=== PATIENT | female | born 1950 | race Caucasian/White ===

== ENCOUNTER 2023-07-23 12:45 | Day surgery (SDC) | payer MEDICARE ==
[2023-07-23 13:27] VITALS: TEMP 98
[2023-07-23 15:01] VITALS: BP 141/80; PULSE 94; RESP 16
--- NOTE | 2023-07-23 16:49 | US ---
EXAM: US biopsy lymph node DATE OF EXAM: 07/23/2023 COMPARISON: None available History: 73-year-old female R5 9.0, right-sided neck mass, enlarged lymph node. TECHNIQUE: The procedure of ultrasound guided core biopsy was explained to the patient. Benefits, alternatives, and risks were discussed. An informed consent was then obtained. The patient was placed in a semireclined position for imaging and for the procedure. Initial scanning shows extensive adenopathy along the right side of the neck. The overlying skin was prepped and draped in usual sterile fashion. Lidocaine was used as anesthetic into the skin and subcutaneous tissue at the right neck. A tiny tayla was made with surgical scalpel. Under ultrasound guidance, an 18-gauge biopsy needle was used to obtain 3 core samples. 2 specimens were placed in formalin and one specimen on a Telfa pad. The needle was removed, hemostasis obtained, and a bandage placed. The patient tolerated the procedure well without any immediate complication. The patient was kept in the radiology department for short stay after the procedure and then discharged home in stable condi tion. IMPRESSION: Successful, uncomplicated ultrasound guided core biopsy of area of right-sided neck adeno thanh. Pathology pending.
== END 2023-07-23 14:40 | disposition home or self-care (01) ==
LOC: RADPROMAIN 12:45
PROVIDERS: ATTEND Otolaryngology
DX: R22.1 Localized swelling, mass and lump, neck (principal)
CPT/HCPCS: 38505; 76942; 88305; 88341; 88342

== ENCOUNTER 2023-09-12 14:26 | Inpatient (IN) | payer MEDICARE ==
[2023-09-12] MEDS ORDERED: HEPARIN SODIUM 1,000 UN/ML (10ML VL) IV PRN (15:19)
[2023-09-12 15:52] LABS: HCT 37.7 % (34.0-46.0); HGB 13.3 gm/dL (11.4-16.0); MCH 31.8 pg (25.0-35.0); MCHC 35.3 g/dL (31.0-37.0); Mean Platelet Volume 8.3; Platelet Count 253 k/uL (150-450); RBC 4.19 m/uL (3.80-5.40); RDW 13.3 % (11.5-15.5); WBC 14.6 k/uL (3.8-10.6)
[2023-09-12] MEDS: IPRATROPIUM-ALBUTEROL 3 ML NEB INHALATION STA (15:58)
[2023-09-12] MEDS: HEPARIN SODIUM 1,000 UN/ML (10ML VL) IV ONE (16:04)
[2023-09-12 16:05] LABS: ALT 18 U/L (4-34); AST 26 U/L (14-36); African American GFR (CKD) >90 (>60 ml/min/1.73 sqM); Albumin 3.8 g/dL (3.5-5.0); Alkaline Phosphatase 153 U/L (38-126); Anion Gap 10 mmol/L; Blood Urea Nitrogen 9 mg/dL (7-17); Calcium 9.2 mg/dL (8.4-10.2); Carbon Dioxide 20 mmol/L (22-30); Chloride 101 mmol/L (98-107); Glucose 122 mg/dL (74-99); Non-African American GFR(CKD) >90 (>60 ml/min/1.73 sqM); Potassium 4.2 mmol/L (3.5-5.1); Sodium 131 mmol/L (137-145); Total Bilirubin 0.7 mg/dL (0.2-1.3); Total Protein 7.1 g/dL (6.3-8.2)
[2023-09-12] MEDS: HEPARIN SOD,PORK IN 0.45% NACL 25,000 UNIT in 0.45% NACL 1 250ML.BAG IV SCH (16:05)
[2023-09-12] MEDS: SODIUM CHLORIDE 0.9% 1,000 ML IV STA (16:06)
[2023-09-12 16:09] LABS: INR 0.8 (<1.2); Partial Thromboplastin Time 22.9 sec (22.0-30.0); Prothrombin Time 9.6 sec (10.0-12.5)
--- NOTE | 2023-09-12 16:10 | ED ---
General Adult HPI - General Chief complaint: Recheck/Abnormal Lab/Rx Stated complaint: abnormal ct results Source: patient Mode of arrival: ambulatory Limitations: no limitations - History of Present Illness Initial comments: This 73-year-old female presents with complaint of some shortness breath and cough. She has had occasional slight whitish production. The cough has been present for quite some time but symptoms seem much worse just since yesterday. She has had occasional midsternal chest tightness as well. She denies any pleuritic chest pain. She denies any fevers or chills. She states that she was just recently diagnosed with non-Hodgkin's lymphoma about a month and half ago. She's been undergoing chemotherapy for the last 2 weeks and follows up with Dr. Tyler from oncology. He ordered a computed tomography scan outpatient for her today. They noted that she has right-sided pulmonary emboli. They sent her to the emergency department for further evaluation and treatment. Patient denies any leg pain or swelling. She denies any known history of DVT or PE. No other complaints or modifying factors. - Related Data Home Medications Medication Instructions Recorded Confirmed Aprepitant [Emend] 80 mg PO DIRECTED 08/29/23 09/12/23 Ondansetron [Zofran] 4 - 8 mg PO Q6H PRN 08/29/23 09/12/23 predniSONE 100 mg PO DIRECTED 08/29/23 09/12/23 ALPRAZolam [Xanax] 0.25 mg PO DAILY PRN 09/12/23 09/12/23 Famotidine 40 mg PO DAILY PRN 09/12/23 09/12/23 Lidocaine-Prilocaine Cream [Emla 1 applic TOPICAL DIRECTED PRN 09/12/23 09/12/23 Cream 2.5%/2.5%] Omeprazole 40 mg PO DAILY 09/12/23 09/12/23 Allergies Allergy/AdvReac Type Severity Reaction Status Date / Time Penicillins Allergy Rash/Hives Verified 09/12/23 14:53 Sulfa (Sulfonamide Allergy Rash/Hives Verified 09/12/23 14:53 Antibiotics) Review of Systems ROS Statement: Those systems with pertinent positive or pertinent negative responses have been documented in the HPI. ROS Other: All systems not noted in ROS Statement are negative. Past Medical History Past Medical History: Pneumonia Additional Past Medical History / Comment(s): LARGE B CELL LYMPHOMA -R-CHOP 09/21 History of Any Multi-Drug Resistant Organisms: None Reported Past Surgical History: Orthopedic Surgery Past Anesthesia/Blood Transfusion Reactions: No Reported Reaction Past Psychological History: No Psychological Hx Reported Smoking Status: Second hand smoke exposure Past Alcohol Use History: Occasional Past Drug Use History: None Reported - Past Family History Mother Family Medical History: Congestive Heart Failure (CHF), Diabetes Mellitus General Exam - General Exam Comments Initial Comments: GENERAL: The patient is well nourished and well hydrated. VITAL SIGNS: Heart rate, blood pressure, respiratory rate reviewed as recorded in nurse's notes. EYES: Pupils are round and reactive. Extraocular movements are intact. No conjunctival / lid redness or swelling. ENT: No external evidence of injury, swelling, or ecchymosis. Airway is patent. Throat is clear. NECK: Nontender. No swelling or evidence of injury. No subcutaneous emphysema. Trachea is midline. No thyroid mass. HEART: Tachycardic rate and rhythm. Good peripheral pulses. LUNGS/CHEST: Breath sounds clear and equal bilaterally. No rales, rhonchi, or wheezes. No ecchymosis, subcutaneous emphysema, or tenderness. ABDOMEN: Abdomen soft without tenderness. No palpable masses or organomegaly. No peritoneal signs. No abdominal wall swelling or ecchymosis. EXTREMITIES: No extremity tenderness or swelling. Normal muscle tone and function. No thoracolumbar tenderness. NEUROLOGIC: Sensation is grossly intact. Cranial nerve exam reveals face is symmetrical, tongue is midline, speech is clear. SKIN: No abrasions or ecchymosis is noted. No induration or masses noted. PSYCHIATRIC: Alert and oriented. Appropriate behavior and judgment. Limitations: no limitations Course Vital Signs 09/12/23 09/12/23 09/12/23 14:50 16:02 16:07 Temperature 98 F Pulse Rate 113 H 110 H 115 H Respiratory 18 16 Rate Blood Pressure 140/80 127/77 O2 Sat by Pulse 92 L 99 Oximetry Medical Decision Making - Medical Decision Making The patient was seen and examined. All diagnostics were reviewed. EKG is completed and this does show sinus tachycardia at a rate of 111. There is no a cute ST elevation noted per my interpretation. Occasional PVC noted. No acute ST or T-wave changes otherwise noted per my interpretation. The intervals are normal. The laboratory does show some mild leukocytosis and slight decrease of CO2. IV is started patient is slightly dehydrated. She also receives heparin intravenously as her CT was reviewed and does show evidence of pulmonary embolism with likely right heart strain per my interpretation and radiologist interpretation. There are also some potential inflammatory changes in her lungs. Please see report for details. She also receives a DuoNeb breathing treatment for her coughing. It is felt as though she benefit from admission to the hospital and further workup. Lower extremity venous Dopplers are ordered and are pending. Case will be discussed with vascular surgery in the near future. Case also will be discussed with internal medicine. Was pt. sent in by a medical professional or institution (, ALICE, DESK DIRECTOR, urgent care, hospital, or [place] [facility] facility...) When possible be specific @ -No Did you speak to anyone other than the patient for history (EMS, parent, family, police, friend...)? What history was obtained from this source @ -No Did you review nursing and triage notes (agree or disagree)? Why? @ -I reviewed and agree with nursing and triage notes Were old charts reviewed (outside hosp., previous admission, EMS record, old EKG, old radiological studies, urgent care reports/EKG's, [place] [facility] care facility records)? Report findings @ -Old records were reviewed which does include CT angiogram of the chest which shows no pulmonary embolism and was done earlier today. Differential Diagnosis (chest pain, altered mental status, abdominal pain women, abdominal pain men, vaginal bleeding, weakness, fever, dyspnea, syncope, headache, dizziness, GI bleed, back pain, seizure, CVA, palpatations, mental health, musculoskeletal)? @ -Pulmonary embolism, COPD, cough, DVT, lymphoma, dyspnea, chest pain. EKG interpreted by me (3pts min.). @ -As above X-rays interpreted by me (1pt min.). @ -None done CT interpreted by me (1pt min.). @ -As above U/S interpreted by me (1pt. min.). @ -Ultrasound is currently pending. What testing was considered but not performed or refused? (CT, X-rays, U/S, labs)? Why? @ -None What meds were considered but not given or refused? Why? @ -None Did you discuss the management of the patient with other professionals (professionals i.e. , PA, DESK DIRECTOR, lab, RT, psych nurse, 7th grade social studies teacher, supervisor shellfish farming, teacher, appeals officer, community case manager)? Give summary @ -Case will be discussed with internal medicine as well as the vascular surgeon who is on for EKOS throat. Was smoking cessation discussed for >3mins.? @ -No Was critical care preformed (if so, how long)? @ -No Were there social determinants of health that impacted care today? How? (Homelessness, low income, unemployed, alcoholism, drug addiction, transportation, low edu. Level, literacy, decrease access to med. care, shelter, rehab)? @ -No Was there de-escalation of care discussed even if they declined (Discuss DNR or withdrawal of care, Hospice)? DNR status @ -No What co-morbidities impacted this encounter? (DM, HTN, Smoking, COPD, CAD, Cancer, CVA, ARF, Chemo, Hep., AIDS, mental health diagnosis, sleep apnea, mo rbid obesity)? @ -Non-Hodgkin's lymphoma Was patient admitted / discharged? Hospital course, mention meds given and route, prescriptions, significant lab abnormalities, going to OR and other pertinent info. @ -Patient was admitted to the hospital, please see above. Undiagnosed new problem with uncertain prognosis? @ -No Drug Therapy requiring intensive monitoring for toxicity (Heparin, Nitro, Insulin, Cardizem)? @ -No Were any procedures done? @ -No Diagnosis/symptom? @ -Pulmonary embolism, right heart strain, cough, chest pain, dyspnea Acute, or Chronic, or Acute on Chronic? @ -Acute Uncomplicated (without systemic symptoms) or Complicated (systemic symptoms)? @ -Uncomplicated Side effects of treatment? @ -No Exacerbation, Progression, or Severe Exacerbation? @ -No Poses a threat to life or bodily function? How? (Chest pain, [place], [place], pneumonia, PE, COPD, DKA, ARF, appy, cholecystitis, CVA, Diverticulitis, Homicidal, Suicidal, threat to staff... and all critical care pts) @ -Yes, pulmonary embolism is potentially life threatening. - Lab Data Result diagrams: 09/12/23 15:32 09/12/23 15:32 Lab Results 09/12/23 09/12/23 Range/Units 15:32 15:32 WBC 14.6 H (3.8-10.6) k/uL RBC 4.19 (3.80-5.40) m/uL Hgb 13.3 (11.4-16.0) gm/dL Hct 37.7 (34.0-46.0) % MCV 90.0 (80.0-100.0) fL MCH 31.8 (25.0-35.0) pg MCHC 35.3 (31.0-37.0) g/dL RDW 13.3 (11.5-15.5) % Plt Count 253 (150-450) k/uL MPV 8.3 Sodium 131 L (137-145) mmol/L Potassium 4.2 (3.5-5.1) mmol/L Chloride 101 (98-107) mmol/L Carbon Dioxide 20 L (22-30) mmol/L Anion Gap 10 mmol/L BUN 9 (7-17) mg/dL Creatinine 0.43 L (0.52-1.04) mg/dL Est GFR (CKD-EPI)AfAm >90 (>60 ml/min/1.73 sqM) Est GFR (CKD-EPI)NonAf >90 (>60 ml/min/1.73 sqM) Glucose 122 H (74-99) mg/dL Calcium 9.2 (8.4-10.2) mg/dL Total Bilirubin 0.7 (0.2-1.3) mg/dL AST 26 (14-36) U/L ALT 18 (4-34) U/L Alkaline Phosphatase 153 H (38-126) U/L Total Protein 7.1 (6.3-8.2) g/dL Albumin 3.8 (3.5-5.0) g/dL Disposition Clinical Impression: Pulmonary embolism, Sinus tachycardia, Dyspnea, Chest pain, Non-Hodgkin lymphoma, Cough, Leukocytosis, Hyponatremia Disposition: ADMITTED IP TO THIS [facility] Condition: Fair Referrals: Bisi Calle FNPBC [Primary Care Provider] - 1-2 days Time of Disposition: 16:16 Decision Date: 09/12/23 Decision Time: 16:16
[2023-09-12 16:14] LABS: NT-Pro-B-Type Natriuretic Pept 154 pg/mL
[2023-09-12 16:18] LABS: Band Neutrophils % 2 %; Lymphocytes # (M) 0.29 k/uL (1.0-4.8); Metamyelocytes # (M) 0.29 k/uL (0); Metamyelocytes % 2 %; Monocytes # (M) 1.46 k/uL (0-1.0); Myelocytes # (M) 0.44 k/uL (0); Myelocytes % 3 %; Neutrophils % (M) 82 %; Nucleated Red Blood Cells 0 /100 WBC (0-0); Total Cells Counted 200
[2023-09-12] MEDS ORDERED: ONDANSETRON 4 MG/2 ML VIAL IVP PRN (16:18)
[2023-09-12] MEDS ORDERED: FAMOTIDINE 20 MG TAB PO PRN (16:22)
[2023-09-12] MEDS ORDERED: ALPRAZolam 0.25 MG TAB PO PRN (16:22)
[2023-09-12] MEDS ORDERED: APREPITANT 80 MG PO SCH (16:30)
--- NOTE | 2023-09-12 18:19 | US ---
EXAMINATION TYPE: US venous doppler duplex LE BI DATE OF EXAM: 09/12/2023 3:26 PM COMPARISON: NONE CLINICAL INDICATION: Female, 73 years old with history of chest pain and sob; PE, SOB SIDE PERFORMED: bilateral TECHNIQUE: The lower extremity deep venous system is examined utilizing real time linear array sonog tunde with graded compression, doppler sonography and color-flow sonography. VESSELS IMAGED: Common Femoral Vein Deep Femoral Vein Greater Saphenous Vein * Femoral Vein Popliteal Vein Small Saphenous Vein * Proximal Calf Veins (* superficial vessels) Right Leg: No evidence of DVT as visualized Left Leg: No evidence of DVT as visualized IMPRESSION: No evidence for DVT within the bilateral lower extremities imaged from the groin to the upper calves.
[2023-09-13] MEDS: MELATONIN 3 MG TABLET PO SCH (00:25)
[2023-09-13] MEDS: HYDROcodone/APAP 5-325MG 1 EACH TAB PO PRN (00:55)
[2023-09-13] MEDS: PANTOPRAZOLE 40 MG/10 ML VIAL IV SCH (09:24)
[2023-09-13 09:32] LABS: Basophils # (A) 0.1 k/uL (0-0.2); Basophils % (A) 0 %; Eosinophils % (A) 0 %; HCT 36.9 % (34.0-46.0); HGB 12.4 gm/dL (11.4-16.0); Lymphocytes # (A) 0.7 k/uL (1.0-4.8); Lymphocytes % (A) 3 %; MCH 30.3 pg (25.0-35.0); MCHC 33.6 g/dL (31.0-37.0); MCV 90.3 fL (80.0-100.0); Mean Platelet Volume 7.8; Monocytes # (A) 1.4 k/uL (0-1.0); Monocytes % (A) 7 %; Neutrophils # (A) 18.7 k/uL (1.3-7.7); Neutrophils % (A) 88 %; Platelet Count 277 k/uL (150-450); RBC 4.09 m/uL (3.80-5.40); RDW 13.7 % (11.5-15.5); WBC 21.4 k/uL (3.8-10.6)
--- NOTE | 2023-09-13 09:58 | P.GSCN ---
History of Present Illness Consult date: 09/13/23 Reason for Consult: Pulmonary embolism Requesting physician: Bc Ly History of present illness: This is a pleasant 73-year-old female recently diagnosed with non-Hodgkin's lymphoma about a month and a half ago who presented to the emergency department with shortness of breath and positive CT angiogram for right pulmonary embolism. Patient had been having increased shortness of breath and had seen Dr. Gupta. She started chemotherapy about 2 weeks ago and got 1 treatment. She is due to get's upcoming treatment. She states that she was starting to have shortness of breath and had seen Dr. Gupta he ordered a CT angiogram the chest that reported right-sided pulmonary emboli with suspicion of some mild right heart strain. Inflammatory or airway changes and/or chronic changes in the lung bases bilatera lly. No evidence of thoracic aortic aneurysm or dissection. Vascular surgery was consulted for pulmonary embolism. She is currently on 2 L nasal cannula saturation 92 to 98%. She is also on IV heparin drip. Awaiting echocardiogram results. Venous duplex of bilateral lower extremities was ordered, negative bilaterally. Patient states she also has a cough especially with a deep breath. She has been afebrile. She currently has some shortness of breath, she does have a cough when she takes a deep breath. No chest pain, abdominal pain, nausea or vomiting. No lower extremity swelling. Troponins are negative x 3 Review of Systems A 14 point review systems was completed all pertinent positives and negatives as stated in the HPI. Past Medical History Past Medical History: Pneumonia Additional Past Medical History / Comment(s): LARGE B CELL LYMPHOMA -R-CHOP 09/21 History of Any Multi-Drug Resistant Organisms: None Reported Past Surgical History: Orthopedic Surgery Past Anesthesia/Blood Transfusion Reactions: No Reported Reaction Past Psychological History: No Psychological Hx Reported Smoking Status: Second hand smoke exposure Past Alcohol Use History: Occasional Past Drug Use History: None Reported - Past Family History Mother Family Medical History: Congestive Heart Failure (CHF), Diabetes Mellitus Medications and Allergies Home Medications Medication Instructions Recorded Confirmed Type Aprepitant [Emend] 80 mg PO DIRECTED 08/29/23 09/12/23 History Ondansetron [Zofran] 4 - 8 mg PO Q6H PRN 08/29/23 09/12/23 History predniSONE 100 mg PO DIRECTED 08/29/23 09/12/23 History ALPRAZolam [Xanax] 0.25 mg PO DAILY PRN 09/12/23 09/12/23 History Famotidine 40 mg PO DAILY PRN 09/12/23 09/12/23 History Lidocaine-Prilocaine Cream [Emla 1 applic TOPICAL DIRECTED PRN 09/12/23 09/12/23 History Cream 2.5%/2.5%] Omeprazole 40 mg PO DAILY 09/12/23 09/12/23 History Allergies Allergy/AdvReac Type Severity Reaction Status Date / Time Penicillins Allergy Rash/Hives Verified 09/12/23 14:53 Sulfa (Sulfonamide Allergy Rash/Hives Verified 09/12/23 14:53 Antibiotics) Surgical - Exam Vital Signs Temp Pulse Resp BP Pulse Ox 98 F 113 H 18 140/80 92 L 09/12/23 14:50 09/12/23 14:50 09/12/23 14:50 09/12/23 14:50 09/12/23 14:50 General appearance: The patient is alert, oriented, appears in no acute distress. HET: Head is normocephalic and atraumatic. Pupils are equal and reactive. Neck: Supple. Heart: Regular. Lungs: Equal expansion, normal respiratory effort. Diminished bases. Abdomen: Soft, nontender, nondistended. Extremities: Normal skin color and turgor. Neurological: No focal deficits. Strength and sensation are grossly intact. Results - Labs 09/13/23 09:23 09/12/23 15:32 Abnormal Lab Results - Last 24 Hours (Table) 09/12/23 09/12/23 09/12/23 Range/Units 15:32 15:32 15:32 WBC 14.6 H (3.8-10.6) k/uL Neutrophils # (Manual) 12.20 H (1.3-7.7) k/uL Lymphocytes # (Manual) 0.29 L (1.0-4.8) k/uL Monocytes # (Manual) 1.46 H (0-1.0) k/uL Metamyelocytes # (Man) 0.29 H (0) k/uL Myelocytes # (Manual) 0.44 H (0) k/uL PT 9.6 L (10.0-12.5) sec APTT (22.0-30.0) sec D-Dimer 4.71 H (<0.60) mg/L FEU Sodium 131 L (137-145) mmol/L Carbon Dioxide 20 L (22-30) mmol/L Creatinine 0.43 L (0.52-1.04) mg/dL Glucose 122 H (74-99) mg/dL Alkaline Phosphatase 153 H (38-126) U/L 09/12/23 Range/Units 21:23 WBC (3.8-10.6) k/uL Neutrophils # (Manual) (1.3-7.7) k/uL Lymphocytes # (Manual) (1.0-4.8) k/uL Monocytes # (Manual) (0-1.0) k/uL Metamyelocytes # (Man) (0) k/uL Myelocytes # (Manual) (0) k/uL PT (10.0-12.5) sec APTT 78.6 H (22.0-30.0) sec D-Dimer (<0.60) mg/L FEU Sodium (137-145) mmol/L Carbon Dioxide (22-30) mmol/L Creatinine (0.52-1.04) mg/dL Glucose (74-99) mg/dL Alkaline Phosphatase (38-126) U/L Diabetes panel 09/12/23 Range/Units 15:32 Sodium 131 L (137-145) mmol/L Potassium 4.2 (3.5-5.1) mmol/L Chloride 101 (98-107) mmol/L Carbon Dioxide 20 L (22-30) mmol/L BUN 9 (7-17) mg/dL Creatinine 0.43 L (0.52-1.04) mg/dL Glucose 122 H (74-99) mg/dL Calcium 9.2 (8.4-10.2) mg/dL AST 26 (14-36) U/L ALT 18 (4-34) U/L Alkaline Phosphatase 153 H (38-126) U/L Total Protein 7.1 (6.3-8.2) g/dL Albumin 3.8 (3.5-5.0) g/dL Calcium panel 09/12/23 Range/Units 15:32 Calcium 9.2 (8.4-10.2) mg/dL Albumin 3.8 (3.5-5.0) g/dL Pituitary panel 09/12/23 Range/Units 15:32 Sodium 131 L (137-145) mmol/L Potassium 4.2 (3.5-5.1) mmol/L Chloride 101 (98-107) mmol/L Carbon Dioxide 20 L (22-30) mmol/L BUN 9 (7-17) mg/dL Creatinine 0.43 L (0.52-1.04) mg/dL Glucose 122 H (74-99) mg/dL Calcium 9.2 (8.4-10.2) mg/dL Adrenal panel 09/12/23 Range/Units 15:32 Sodium 131 L (137-145) mmol/L Potassium 4.2 (3.5-5.1) mmol/L Chloride 101 (98-107) mmol/L Carbon Dioxide 20 L (22-30) mmol/L BUN 9 (7-17) mg/dL Creatinine 0.43 L (0.52-1.04) mg/dL Glucose 122 H (74-99) mg/dL Calcium 9.2 (8.4-10.2) mg/dL Total Bilirubin 0.7 (0.2-1.3) mg/dL AST 26 (14-36) U/L ALT 18 (4-34) U/L Alkaline Phosphatase 153 H (38-126) U/L Total Protein 7.1 (6.3-8.2) g/dL Albumin 3.8 (3.5-5.0) g/dL - Imaging Comments: CT angiogram chest: Filling defects within the segmental and subsegmental branches of the right middle and right lower lobe pulmonary arteries. Some prominence of right heart which is suggestive of some right heart strain however also some mild global cardiomegaly as well. Inflammatory airway changes and or chronic c changes in the lung bases bilaterally. No evidence of thoracic aortic aneurysm or dissection Venous duplex lower extremities. Bilateral lower extremities negative for deep vein thrombosis CT scan - chest: report reviewed Assessment and Plan Assessment: 1. Right-sided pulmonary embolism 2. Shortness of breath 3. Recent diagnosis of non-Hodgkin's lymphoma on chemotherapy Plan: 1. Continue IV heparin 2. Await echocardiogram results 3. Further recommendations forthcoming based on echocardiogram results however troponins are negative x 3 and this is a subsegmental/segmental right pulmonary emboli likely no intervention will be required 4. Will defer anticoagulation recommendations to oncology who is following for non-Hodgkin's lymphoma currently on chemotherapy Thank you for this consultation, we will continue to follow. The impression and plan of care has been dictated as directed. I performed a history and examination of this patient, discussed the same with the dictator. I agree with the dictator's note ,documented as a scribe. Any additional findings or plans will be noted.
--- NOTE | 2023-09-13 10:54 | P.HPIM ---
History of Present Illness H&P Date: 09/13/23 History of present illness; patient 73-year-old lady with past medical history significant for non-Hodgkin lymphoma currently on chemotherapy who was sent in after getting outpatient CT chest showing patient to have PE. According the patient patient has been having shortness of breath and cough for the last few days. Patient stated that the cough is productive, phlegm is whitish in color. Patient complains of shortness of breath on exertion. Denies any chest pain. There is no complaint of palpitation. No current lightheadedness or dizziness. Denies any fever or chills at home. Patient normally follows up with Dr. Tyler. Because of worsening shortness of breath they ordered a CT chest PE protocol showed patient to have PE. Patient was referred to The ER Initial lab work done in the ER showed WBC 14.6, hemoglobin 13.3, platelet count 253, sodium 131, D-dimer 4.71, BUN 9, creatinine 0.43, AST 26, ALT 18, troponin 0.012, proBNP 154 Duplex ultrasound of lower extremities shows no DVT EKG done in the ER showed heart rate of111 , no ST segment elevation or depression seen, no T-wave inversions seen. Patient admitted to internal medicine service REVIEW OF SYSTEMS: CONSTITUTIONAL: No fever, no malaise, no fatigue. HEENT: No recent visual problems or hearing problems. Denied any sore throat. CARDIOVASCULAR: As mentioned above PULMONARY: As mentioned above GASTROINTESTINAL: No diarrhea, no nausea, no vomiting, no abdominal pain. NEUROLOGICAL: No headaches, no weakness, no numbness. HEMATOLOGICAL: Denies any bleeding or petechiae. GENITOURINARY: Denies any burning micturition, frequency, or urgency. MUSCULOSKELETAL/RHEUMATOLOGICAL: Denies any joint pain, swelling, or any muscle pain. ENDOCRINE: Denies any polyuria or polydipsia. The rest of the 14-point review of systems is negative. PHYSICAL EXAMINATION: GENERAL: The patient is alert and oriented x3, not in any acute distress. Well developed, well nourished. HEENT: Pupils are round and equally reacting to light. EOMI. No scleral icterus. No conjunctival pallor. Normocephalic, atraumatic. No pharyngeal erythema. No thyromegaly. CARDIOVASCULAR: S1 and S2 present. No murmurs, rubs, or gallops. PULMONARY: Chest is clear to auscultation, no wheezing or crackles. ABDOMEN: Soft, nontender, nondistended, normoactive bowel sounds. No palpable organomegaly. MUSCULOSKELETAL: No joint swelling or deformity. EXTREMITIES: No cyanosis, clubbing, or pedal edema. NEUROLOGICAL: Gross neurological examination did not reveal any focal deficits. SKIN: No rashes. Assessment and plan Acute PE non-Hodgkin's lymphoma Monitor vital signs Monitor CBC Monitor CMP Continue telemetry monitoring Trend troponin Ordered proBNP 2D echo ordered Continue pharmacy to dose heparin Hematology oncology consulted Pulmonology consulted. Vascular surgery consulted Labs and medication were reviewed.. Continue same treatment. Continue with symptomatic treatment. Resume home medication. Monitor labs and vitals. DVT and GI prophylaxis. Further recommendations as per clinical course of the patient Dictation was produced using [employer] dictation software. please excuse any grammatical, word or spelling errors. Past Medical History Past Medical History: Pneumonia Additional Past Medical History / Comment(s): LARGE B CELL LYMPHOMA -R-CHOP 09/21 History of Any Multi-Drug Resistant Organisms: None Reported Past Surgical History: Orthopedic Surgery Past Anesthesia/Blood Transfusion Reactions: No Reported Reaction Past Psychological History: No Psychological Hx Reported Smoking Status: Second hand smoke exposure Past Alcohol Use History: Occasional Past Drug Use History: None Reported - Past Family History Mother Family Medical History: Congestive Heart Failure (CHF), Diabetes Mellitus Medications and Allergies Home Medications Medication Instructions Recorded Confirmed Type Aprepitant [Emend] 80 mg PO DIRECTED 08/29/23 09/12/23 History Ondansetron [Zofran] 4 - 8 mg PO Q6H PRN 08/29/23 09/12/23 History predniSONE 100 mg PO DIRECTED 08/29/23 09/12/23 History ALPRAZolam [Xanax] 0.25 mg PO DAILY PRN 09/12/23 09/12/23 History Famotidine 40 mg PO DAILY PRN 09/12/23 09/12/23 History Lidocaine-Prilocaine Cream [Emla 1 applic TOPICAL DIRECTED PRN 09/12/23 09/12/23 History Cream 2.5%/2.5%] Omeprazole 40 mg PO DAILY 09/12/23 09/12/23 History Allergies Allergy/AdvReac Type Severity Reaction Status Date / Time Penicillins Allergy Rash/Hives Verified 09/12/23 14:53 Sulfa (Sulfonamide Allergy Rash/Hives Verified 09/12/23 14:53 Antibiotics) Physical Exam Vitals: Vital Signs Temp Pulse Resp BP Pulse Ox 09/13/23 09:06 99.8 F H 100 18 126/68 96 09/13/23 02:12 95 16 96/56 92 L 09/12/23 23:00 105 H 16 127/65 94 L 09/12/23 18:15 106 H 18 117/65 94 L 09/12/23 16:07 115 H 16 127/77 99 09/12/23 16:02 110 H 09/12/23 14:50 98 F 113 H 18 140/80 92 L Intake and Output 09/12/23 09/13/23 09/13/23 22:59 06:59 14:59 Intake Total 250 Balance 250 Intake: Intake, IV Titration 250 Amount Heparin Sod,Pork in 0.45% 250 NaCl 25,000 unit In 0.45 % NaCl 1 250ml.bag @ 18 UNITS/KG/HR 15.186 mls/hr IV .[id number] [facility] Rx#: [id number] Results CBC & Chem 7: 09/13/23 09:23 09/12/23 15:32 Labs: Abnormal Lab Results - Last 24 Hours (Table) 09/12/23 09/12/23 09/12/23 Range/Units 15:32 15:32 15:32 WBC 14.6 H (3.8-10.6) k/uL Neutrophils # (Manual) 12.20 H (1.3-7.7) k/uL Lymphocytes # (Manual) 0.29 L (1.0-4.8) k/uL Monocytes # (Manual) 1.46 H (0-1.0) k/uL Metamyelocytes # (Man) 0.29 H (0) k/uL Myelocytes # (Manual) 0.44 H (0) k/uL PT 9.6 L (10.0-12.5) sec APTT (22.0-30.0) sec D-Dimer 4.71 H (<0.60) mg/L FEU Sodium 131 L (137-145) mmol/L Carbon Dioxide 20 L (22-30) mmol/L Creatinine 0.43 L (0.52-1.04) mg/dL Glucose 122 H (74-99) mg/dL Alkaline Phosphatase 153 H (38-126) U/L 09/12/23 Range/Units 21:23 WBC (3.8-10.6) k/uL Neutrophils # (Manual) (1.3-7.7) k/uL Lymphocytes # (Manual) (1.0-4.8) k/uL Monocytes # (Manual) (0-1.0) k/uL Metamyelocytes # (Man) (0) k/uL Myelocytes # (Manual) (0) k/uL PT (10.0-12.5) sec APTT 78.6 H (22.0-30.0) sec D-Dimer (<0.60) mg/L FEU Sodium (137-145) mmol/L Carbon Dioxide (22-30) mmol/L Creatinine (0.52-1.04) mg/dL Glucose (74-99) mg/dL Alkaline Phosphatase (38-126) U/L
--- NOTE | 2023-09-13 13:19 | P.CONS ---
History of Present Illness - Reason for Consult Consult date: 09/13/23 PE, DLBCL on chemo - History of Present Illness The patient is a 73-year-old white female, well known to myself. She has a recent diagnosis of diffuse large B cell lymphoma, diagnosed via biopsy of adenopathy affecting the right neck, and right supraclavicular area. Her PET scan showed disease localized to the site. She was started on R CHOP and is status post 1 cycle given 2 weeks ago. He was seen in the office for her routine follow-up on 09/12/23. She had some expected side effects from the chemo, which had improved. However she had noted increase in coughing, chest heaviness and shortness of breath. She was therefore sent immediately to the hospital for a stat CT as diagrammed. This showed evidence of PE involving the right lung, and the segmental and subsegmental branches in the middle and lower lobes. There was possibility of right heart strain. The patient was therefore admitted and started on IV heparin and consult placed. Review of Systems Constitutional: Reports fatigue Eyes: denies blurred vision, denies pain Ears: deny: decreased hearing, ear discharge, earache, tinnitus Ears, nose, mouth and throat: Reports as per HPI (Right neck adenopathy), Denies headache, Denies sore throat Cardiovascular: Reports chest pain, Reports shortness of breath Respiratory: Reports congestion, Reports cough, Reports dyspnea, Reports pain Gastrointestinal: Denies abdominal pain, Denies diarrhea, Denies nausea, Denies vomiting Genitourinary: Denies dysuria, Denies hematuria Menstruation: Reports postmenopausal Musculoskeletal: Reports muscle weakness Integumentary: Denies pruritus, Denies rash Neurological: Reports weakness Endocrine: Reports fatigue Hematologic/Lymphatic: Reports as per HPI, Reports lymphadenopathy Past Medical History Past Medical History: Pneumonia Additional Past Medical History / Comment(s): LARGE B CELL LYMPHOMA -R-CHOP 09/21 History of Any Multi-Drug Resistant Organisms: None Reported Past Surgical History: Orthopedic Surgery Past Anesthesia/Blood Transfusion Reactions: No Reported Reaction Past Psychological History: No Psychological Hx Reported Smoking Status: Second hand smoke exposure Past Alcohol Use History: Occasional Past Drug Use History: None Reported - Past Family History Mother Family Medical History: Congestive Heart Failure (CHF), Diabetes Mellitus Medications and Allergies Home Medications Medication Instructions Recorded Confirmed Type Aprepitant [Emend] 80 mg PO DIRECTED 08/29/23 09/12/23 History Ondansetron [Zofran] 4 - 8 mg PO Q6H PRN 08/29/23 09/12/23 History predniSONE 100 mg PO DIRECTED 08/29/23 09/12/23 History ALPRAZolam [Xanax] 0.25 mg PO DAILY PRN 09/12/23 09/12/23 History Famotidine 40 mg PO DAILY PRN 09/12/23 09/12/23 History Lidocaine-Prilocaine Cream [Emla 1 applic TOPICAL DIRECTED PRN 09/12/23 09/12/23 History Cream 2.5%/2.5%] Omeprazole 40 mg PO DAILY 09/12/23 09/12/23 History Allergies Allergy/AdvReac Type Severity Reaction Status Date / Time Penicillins Allergy Rash/Hives Verified 09/12/23 14:53 Sulfa (Sulfonamide Allergy Rash/Hives Verified 09/12/23 14:53 Antibiotics) Physical Exam Vitals: Vital Signs Temp Pulse Resp BP Pulse Ox 09/13/23 11:12 98.3 F 96 18 114/65 96 09/13/23 09:06 99.8 F H 100 18 126/68 96 09/13/23 02:12 95 16 96/56 92 L 09/12/23 23:00 105 H 16 127/65 94 L 09/12/23 18:15 106 H 18 117/65 94 L 09/12/23 16:07 115 H 16 127/77 99 09/12/23 16:02 110 H 09/12/23 14:50 98 F 113 H 18 140/80 92 L Intake and Output 09/12/23 09/13/23 09/13/23 22:59 06:59 14:59 Intake Total 250 Balance 250 Intake: Intake, IV Titration 250 Amount Heparin Sod,Pork in 0.45% 250 NaCl 25,000 unit In 0.45 % NaCl 1 250ml.bag @ 18 UNITS/KG/HR 15.186 mls/hr IV .[id number] [facility] Rx#: [id number] - Constitutional General appearance: mild distress - EENT Eyes: EOMI, PERRLA ENT: hearing grossly normal, normal oropharynx - Neck Neck: lymphadenopathy (Confluent adenopathy involving the right middle and lower cervical chain, as well as right supraclavicular area. Markedly decreased compared to before) Thyroid: bilateral: normal size - Respiratory Respiratory: bilateral: CTA - Cardiovascular Rhythm: regular Heart sounds: normal: S1, S2 - Gastrointestinal General gastrointestinal: normal bowel sounds, soft - Integumentary Integumentary: normal - Neurologic Neurologic: CNII-XII intact - Musculoskeletal Musculoskeletal: generalized weakness, strength equal bilaterally - Psychiatric Psychiatric: A&O x's 3, appropriate affect Results CBC & Chem 7: 09/13/23 09:23 09/12/23 15:32 Labs: Abnormal Lab Results - Last 24 Hours (Table) 09/12/23 09/12/23 09/12/23 Range/Units 15:32 15:32 15:32 WBC 14.6 H (3.8-10.6) k/uL Neutrophils # (1.3-7.7) k/uL Neutrophils # (Manual) 12.20 H (1.3-7.7) k/uL Lymphocytes # (1.0-4.8) k/uL Lymphocytes # (Manual) 0.29 L (1.0-4.8) k/uL Monocytes # (0-1.0) k/uL Monocytes # (Manual) 1.46 H (0-1.0) k/uL Metamyelocytes # (Man) 0.29 H (0) k/uL Myelocytes # (Manual) 0.44 H (0) k/uL PT 9.6 L (10.0-12.5) sec APTT (22.0-30.0) sec D-Dimer 4.71 H (<0.60) mg/L FEU Sodium 131 L (137-145) mmol/L Carbon Dioxide 20 L (22-30) mmol/L Creatinine 0.43 L (0.52-1.04) mg/dL Glucose 122 H (74-99) mg/dL Alkaline Phosphatase 153 H (38-126) U/L 09/12/23 09/13/23 09/13/23 Range/Units 21:23 09:23 09:23 WBC 21.4 H (3.8-10.6) k/uL Neutrophils # 18.7 H (1.3-7.7) k/uL Neutrophils # (Manual) (1.3-7.7) k/uL Lymphocytes # 0.7 L (1.0-4.8) k/uL Lymphocytes # (Manual) (1.0-4.8) k/uL Monocytes # 1.4 H (0-1.0) k/uL Monocytes # (Manual) (0-1.0) k/uL Metamyelocytes # (Man) (0) k/uL Myelocytes # (Manual) (0) k/uL PT (10.0-12.5) sec APTT 78.6 H 50.4 H (22.0-30.0) sec D-Dimer (<0.60) mg/L FEU Sodium (137-145) mmol/L Carbon Dioxide (22-30) mmol/L Creatinine (0.52-1.04) mg/dL Glucose (74-99) mg/dL Alkaline Phosphatase (38-126) U/L Chest x-ray: report reviewed CT scan - chest: report reviewed Venous US: report reviewed Assessment and Plan (1) Pulmonary embolism Narrative/Plan: The patient was sent in from the office, due to symptoms suspicious for PE. She was found to have the same. The case was discussed in detail with the radiologist, and the patient was asked to go to the hospital immediately where she was admitted for further management. - The patient is partially improved on IV heparin. Due to possible right heart strain noted on CT angiogram, echocardiogram has been performed. We discussed the indications for more aggressive procedure such as, lysis or clot extraction. She was advised that this would be decided per pulmonary medicine and vascular surgery. - Once the patient is felt to be stable, she can be switched over to oral DOAC - Given PE related to underlying malignancy, she would need to be on anticoagulation, until she completes treatment for her cancer, and at least for some months afterwards. - She had baseline Dopplers done that were negative. Current Visit: Yes Status: Acute Code(s): I26.99 - OTHER PULMONARY EMBOLISM WITHOUT ACUTE COR PULMONALE SNOMED Code(s): 51665230 (2) Non-Hodgkin lymphoma Narrative/Plan: Diagnostic and therapeutic circumstances as described. Her CBC shows her counts to be quite adequate for invasive procedures and anticoagulation. We will continue to monitor these subsequently as the patient resumes treatment. We discussed that her next cycle, it was due next week, may need to be delayed depending on how fast her acute situation resolves Current Visit: Yes Status: Acute Code(s): C85.90 - NON-HODGKIN LYMPHOMA, UNSPECIFIED, UNSPECIFIED SITE SNOMED Code(s): 134973123
[2023-09-13] MEDS: ACETAMINOPHEN TAB 325 MG TAB PO PRN (14:21)
--- NOTE | 2023-09-13 14:54 | P.CNPUL ---
History of Present Illness Consult date: 09/13/23 Requesting physician: Matheus Olivas Reason for consult: dyspnea, chest pain, abnormal CXR/CT Chief complaint: Chest pain, shortness of breath History of present illness: This is a very pleasant 73-year-old female patient with a history of an enlarged right neck mass with subsequent biopsy and 07/23/2023 that revealed non- Hodgkin's large B-cell lymphoma. She had been initiated on R-CHOP chemotherapy 2 weeks ago. Over the past several days she had developed increasing shortness of breath and some right-sided chest pain. She was seen by her medical oncologist who ordered a CT angiogram yesterday that was positive for pulmonary embolism and she was referred here to the emergency room for the same. The angiogram did reveal right-sided pulmonary emboli with suspicion of some mild right heart strain. Some inflammatory airway changes in the lung bases bilaterally. Doppler of the lower extremities revealed no evidence of DVT. She has no prior history of PE/DVT. Echocardiogram is pending. White count 21.4. Hemoglobin 12.4. Platelets 277. D-dimer 4.71. Sodium 131. Potassium 4.2. Bicarb 20. BUN 9. Creatinine 0.43. Troponins were negative x 3. proBNP 154. She has been initiated on a heparin drip. She is seen today in consultation in the emergency department. She is currently sitting up on the stretcher. Awake and alert in no acute distress. She is maintaining O2 saturations in the 90s on 2 L/min per nasal cannula. She has been afebrile. Hemodynamically stable. Review of Systems REVIEW OF SYSTEMS: CONSTITUTIONAL: Denies any recent significant weight loss or weight gain. EYES: Denies change in vision. EARS, NOSE, MOUTH, THROAT: Denies headaches, denies sore throat. CARDIOVASCULAR: Positive for right sided chest pain, no palpitations or syncopal episodes. RESPIRATORY: Positive for shortness of breath, no cough, congestion or h emoptysis. GASTROINTESTINAL: Denies change in appetite, denies abdominal pain GENITOURINARY: Denies hematuria, denies infections. MUSKULOSKELETAL: Denies pain, denies swelling. INTEGUMENTARY: Denies rash, denies eczema. NEUROLOGICAL: Denies recent memory loss, no recent seizure activity. PSYCHIATRIC: Denies anxiety, denies depression. HEMATOLOGIC/LYMPHATIC: Denies anemia, denies enlarged lymph nodes. Past Medical History Past Medical History: Pneumonia Additional Past Medical History / Comment(s): LARGE B CELL LYMPHOMA -R-CHOP 09/21 History of Any Multi-Drug Resistant Organisms: None Reported Past Surgical History: Orthopedic Surgery Past Anesthesia/Blood Transfusion Reactions: No Reported Reaction Past Psychological History: No Psychological Hx Reported Smoking Status: Second hand smoke exposure Past Alcohol Use History: Occasional Past Drug Use History: None Reported - Past Family History Mother Family Medical History: Congestive Heart Failure (CHF), Diabetes Mellitus Medications and Allergies Home Medications Medication Instructions Recorded Confirmed Type Aprepitant [Emend] 80 mg PO DIRECTED 08/29/23 09/12/23 History Ondansetron [Zofran] 4 - 8 mg PO Q6H PRN 08/29/23 09/12/23 History predniSONE 100 mg PO DIRECTED 08/29/23 09/12/23 History ALPRAZolam [Xanax] 0.25 mg PO DAILY PRN 09/12/23 09/12/23 History Famotidine 40 mg PO DAILY PRN 09/12/23 09/12/23 History Lidocaine-Prilocaine Cream [Emla 1 applic TOPICAL DIRECTED PRN 09/12/23 09/12/23 History Cream 2.5%/2.5%] Omeprazole 40 mg PO DAILY 09/12/23 09/12/23 History Allergies Allergy/AdvReac Type Severity Reaction Status Date / Time Penicillins Allergy Rash/Hives Verified 09/12/23 14:53 Sulfa (Sulfonamide Allergy Rash/Hives Verified 09/12/23 14:53 Antibiotics) Physical Exam Vitals: Vital Signs Temp Pulse Resp BP Pulse Ox 09/13/23 13:50 98.5 F 101 H 18 122/73 96 09/13/23 13:10 98.9 F 101 H 18 122/73 94 L 09/13/23 11:12 98.3 F 96 18 114/65 96 09/13/23 09:06 99.8 F H 100 18 126/68 96 09/13/23 02:12 95 16 96/56 92 L 09/12/23 23:00 105 H 16 127/65 94 L 09/12/23 18:15 106 H 18 117/65 94 L 09/12/23 16:07 115 H 16 127/77 99 09/12/23 16:02 110 H 09/12/23 14:50 98 F 113 H 18 140/80 92 L Intake and Output 09/12/23 09/13/23 09/13/23 22:59 06:59 14:59 Intake Total 250 Balance 250 Intake: Intake, IV Titration 250 Amount Heparin Sod,Pork in 0.45% 250 NaCl 25,000 unit In 0.45 % NaCl 1 250ml.bag @ 18 UNITS/KG/HR 15.186 mls/hr IV .[id number] [facility] Rx#: [id number] Other: Weight 84.368 kg GENERAL EXAM: Alert, very pleasant 73-year-old female, on 2 L nasal cannula, fairly comfortable in no apparent distress. HEAD: Normocephalic. EYES: Normal reaction of pupils, equal size. NOSE: Clear with pink turbinates. THROAT: No erythema or exudates. NECK: No masses, no JVD. CHEST: No chest wall deformity. LUNGS: Equal air entry with no crackles, wheeze, rhonchi or dullness. CVS: S1 and S2 normal with no audible murmur, regular rhythm. ABDOMEN: No hepatosplenomegaly, normal bowel sounds, no guarding or rigidity. SPINE: No scoliosis or deformity SKIN: No rashes CENTRAL NERVOUS SYSTEM: No focal deficits, tone is normal in all 4 extremities. EXTREMITIES: There is no peripheral edema. No clubbing, no cyanosis. Peripheral pulses are intact. Results - Laboratory Findings CBC and BMP: 09/13/23 09:23 09/12/23 15:32 PT/INR, D-dimer PT 9.6 sec (10.0-12.5) L 09/12/23 15:32 INR 0.8 (<1.2) 09/12/23 15:32 D-Dimer 4.71 mg/L FEU (<0.60) H 09/12/23 15:32 Abnormal lab findings: Abnormal Labs 09/12/23 09/12/23 09/12/23 15:32 15:32 15:32 WBC 14.6 H Neutrophils # Neutrophils # (Manual) 12.20 H Lymphocytes # Lymphocytes # (Manual) 0.29 L Monocytes # Monocytes # (Manual) 1.46 H Metamyelocytes # (Man) 0.29 H Myelocytes # (Manual) 0.44 H PT 9.6 L APTT D-Dimer 4.71 H Sodium 131 L Carbon Dioxide 20 L Creatinine 0.43 L Glucose 122 H Alkaline Phosphatase 153 H 09/12/23 09/13/23 09/13/23 21:23 09:23 09:23 WBC 21.4 H Neutrophils # 18.7 H Neutrophils # (Manual) Lymphocytes # 0.7 L Lymphocytes # (Manual) Monocytes # 1.4 H Monocytes # (Manual) Metamyelocytes # (Man) Myelocytes # (Manual) PT APTT 78.6 H 50.4 H D-Dimer Sodium Carbon Dioxide Creatinine Glucose Alkaline Phosphatase - Diagnostic Findings CT scan - chest: image reviewed Assessment and Plan Assessment: Acute hypoxic respiratory failure secondary to an acute pulmonary emboli involving the segmental and subsegmental branches of the right middle and right lower lobe pulmonary arteries Right-sided chest pain secondary to above Recent diagnosis of large B cell non-Hodgkin's lymphoma, initiated on R-CHOP 2 weeks ago Enlarged right supraclavicular lymph nodes secondary to above status post biopsy 07/23/2023 Plan: The patient was seen and evaluated CT angiogram, labs and medications reviewed Continue the heparin drip Echocardiogram is pending Vascular surgery consulted Titrate the FiO2 as tolerated Currently hemodynamically stable We will continue to follow and make further recommendations based on her clinical status I have personally seen and examined the patient, performed the documentation and the assessment and plan as written. Number of minutes spent on the visit: 20.
--- NOTE | 2023-09-13 17:10 | CA ---
Transthoracic Echo Report Name: Katarzyna Garrett Age: 73 Gender: F : 1950 Exam Date: 09/13/2023 10:40 Exam Location: [facility] Ht (in): 66 Wt (lb): 186 Ordering Physician: Dorinda Dee Attending/Referring Phys: Water Control Supervisor James Espinoza RDCS Procedure CPT: Indications: pulmonary Embolism, assess for right heart strain Cardiac Hx: Technical Quality: Fair Contrast 1: Total Dose (mL): Contrast 2: Total Dose (mL): MEASUREMENTS (Male / Female) Normal Values FINDINGS Left Ventricle Left ventricular ejection fraction is estimated at 55-60 %. Right Ventricle Normal right ventricular size and function. Right Atrium Normal right atrial size. Left Atrium Left atrial size at the upper limits of normal. Mitral Valve No mitral regurgitation. Aortic Valve Trileaflet aortic valve. Tricuspid Valve Mild tricuspid regurgitation. Pulmonic Valve Trace pulmonic regurgitation. Pericardium Normal pericardium. Aorta Normal size aortic root and proximal ascending aorta. CONCLUSIONS Left ventricular ejection fraction 55-60% No mitral regurgitation Mild tricuspid regurgitation No pericardial effusion Previewed by: Dr. Sung Dodge DO (Electronically Signed) Final Date: 13 September 2023 17:10
[2023-09-13] MEDS: guaiFENesin SYRUP 100MG/5ML 200 MG/10 ML CUP PO PRN (17:56)
[2023-09-13] MEDS: IPRATROPIUM-ALBUTEROL 3 ML NEB INHALATION PRN (21:01)
[2023-09-13] MEDS: MORPHINE SULFATE 2 MG/ML SYRINGE IVP PRN (22:08)
[2023-09-14 00:18] VITALS: RESP 18
[2023-09-14 09:04] LABS: Basophils # (A) 0.1 k/uL (0-0.2); Basophils % (A) 0 %; Eosinophils % (A) 0 %; HCT 36.8 % (34.0-46.0); HGB 11.9 gm/dL (11.4-16.0); Lymphocytes # (A) 1.3 k/uL (1.0-4.8); Lymphocytes % (A) 6 %; MCH 30.5 pg (25.0-35.0); MCHC 32.4 g/dL (31.0-37.0); MCV 94.1 fL (80.0-100.0); Mean Platelet Volume 8.2; Monocytes # (A) 1.3 k/uL (0-1.0); Monocytes % (A) 6 %; Neutrophils # (A) 18.8 k/uL (1.3-7.7); Neutrophils % (A) 86 %; Platelet Count 361 k/uL (150-450); RBC 3.91 m/uL (3.80-5.40); RDW 13.2 % (11.5-15.5); WBC 21.9 k/uL (3.8-10.6)
[2023-09-14 09:27] LABS: ALT 16 U/L (4-34); AST 28 U/L (14-36); African American GFR (CKD) >90 (>60 ml/min/1.73 sqM); Alkaline Phosphatase 129 U/L (38-126); Anion Gap 8 mmol/L; Blood Urea Nitrogen 9 mg/dL (7-17); Calcium 8.5 mg/dL (8.4-10.2); Carbon Dioxide 23 mmol/L (22-30); Chloride 101 mmol/L (98-107); Glucose 104 mg/dL (74-99); Non-African American GFR(CKD) >90 (>60 ml/min/1.73 sqM); Potassium 4.1 mmol/L (3.5-5.1); Sodium 132 mmol/L (137-145); Total Protein 6.1 g/dL (6.3-8.2)
[2023-09-14 10:32] VITALS: TEMP 98.4
--- NOTE | 2023-09-14 10:58 | P.PN ---
Subjective Progress Note Date: 09/14/23 Patient is seen and examined at the bedside. She is sitting in the chair and in no acute distress. She has not had any issues. Has been able to get up and go to the bathroom. She states that overall her breathing feels better. Objective - Vital Signs Vital signs: Vital Signs Temp 98.4 F 09/14/23 08:30 Pulse 108 H 09/14/23 08:30 Resp 18 09/14/23 08:30 BP 115/61 09/14/23 08:30 Pulse Ox 94 L 09/14/23 08:30 FiO2 Intake & Output 09/13/23 09/14/23 09/14/23 18:59 06:59 18:59 Intake Total 360 862.026 118 Balance 360 862.026 118 Weight 84.368 kg Intake: Intake, IV Titration 250 322.026 Amount Heparin Sod,Pork in 0.45% 250 247.026 NaCl 25,000 unit In 0.45 % NaCl 1 250ml.bag @ 18 UNITS/KG/HR 15.186 mls/hr IV .[id number] [facility] Rx#: [id number] Sodium Chloride 0.9% 1, 75 000 ml @ 75 mls/hr IV . [id number] STA Rx#:[id number] Oral 110 540 118 Other: # Voids 2 - Exam General is a pleasant cooperative female in no acute distress sitting in a chair. On room air. Normal respiratory effort. Neuromotor intact. Extremities show no clubbing, cyanosis or significant edema. - Labs CBC & Chem 7: 09/14/23 07:29 09/14/23 07:29 Labs: Abnormal Lab Results - Last 24 Hours (Table) 09/14/23 09/14/23 09/14/23 Range/Units 07:29 07:29 07:29 WBC 21.9 H (3.8-10.6) k/uL Neutrophils # 18.8 H (1.3-7.7) k/uL Monocytes # 1.3 H (0-1.0) k/uL APTT 79.0 H (22.0-30.0) sec Sodium 132 L (137-145) mmol/L Creatinine 0.51 L (0.52-1.04) mg/dL Glucose 104 H (74-99) mg/dL Alkaline Phosphatase 129 H (38-126) U/L Total Protein 6.1 L (6.3-8.2) g/dL Albumin 3.0 L (3.5-5.0) g/dL Assessment and Plan Assessment: 1. Right-sided pulmonary embolism, non massive 2. Shortness of breath 3. Recent diagnosis of non-Hodgkin's lymphoma on chemotherapy Plan: Continue IV heparin. Echocardiogram shows no evidence of right heart strain. No right heart dilation. No further intervention recommended. Will defer further anticoagulation recommendations to hematology oncology who is following for patient's lymphoma undergoing current therapy. Attempted to phone the son, left a voicemail to call if he had any questions in regards to pulmonary embolism and care in this regard
[2023-09-14] MEDS: Apixaban Initiation Dose--VTE 5 MG TAB PO SCH (11:35)
--- NOTE | 2023-09-14 12:59 | P.DS ---
Providers Date of admission: 09/12/23 16:41 Expected date of discharge: 09/14/23 Attending physician: Maverick Bentley Consults: 09/12/23 16:18 Consult Physician Routine Consulting Provider: Kevin Hawk Consult Reason/Comments: PE Do you want consulting provider notified?: Already Contacted Consult Physician Routine Consulting Provider: Romario Tyler Consult Reason/Comments: lymphoma Do you want consulting provider notified?: Yes 09/12/23 16:57 Consult Physician Routine Consulting Provider: Irwin Mckeon Consult Reason/Comments: pe Do you want consulting provider notified?: Already Contacted Primary care physician: Abilio Simmons MD Hospital Course: Discharge diagnoses; Acute PE Acute hypoxic respiratory failure non-Hodgkin's lymphoma Hospital course; patient 73-year-old lady with past medical history significant for non-Hodgkin lymphoma currently on chemotherapy who was sent in after getting outpatient CT chest showing patient to have PE. According the patient patient has been having shortness of breath and cough for the last few days. Patient stated that the cough is productive, phlegm is whitish in color. Patient complains of shortness of breath on exertion. Denies any chest pain. There is no complaint of palpitation. No current lightheadedness or dizziness. Denies any fever or chills at home. Patient normally follows up with Dr. Tyler. Because of worsening shortness of breath they ordered a CT chest PE protocol showed patient to have PE. Patient was referred to The ER Initial lab work done in the ER showed WBC 14.6, hemoglobin 13.3, platelet count 253, sodium 131, D-dimer 4.71, BUN 9, creatinine 0.43, AST 26, ALT 18, troponin 0.012, proBNP 154 Duplex ultrasound of lower extremities shows no DVT EKG done in the ER showed heart rate of111 , no ST segment elevation or depression seen, no T-wave inversions seen. Patient admitted to internal medicine service 09/14. Patient seen and examined. 2D echo done showed LVEF of 55 to 60%, no mitral regurg, mild tricuspid regurg, no pericardial effusion. Pulmonology recommends starting patient on Eliquis 10 mg twice a day for 7 days followed by 5 mg twice a day. Vascular surgery also evaluated patient, recommend no surgical intervention, recommended keeping patient on oral anticoagulation at discharge. PHYSICAL EXAMINATION: GENERAL: The patient is alert and oriented x3, not in any acute distress. Well developed, well nourished. HEENT: Pupils are round and equally reacting to light. EOMI. No scleral icterus. No conjunctival pallor. Normocephalic, atraumatic. No pharyngeal erythema. No thyromegaly. CARDIOVASCULAR: S1 and S2 present. No murmurs, rubs, or gallops. PULMONARY: Chest is clear to auscultation, no wheezing or crackles. ABDOMEN: Soft, nontender, nondistended, normoactive bowel sounds. No palpable organomegaly. MUSCULOSKELETAL: No joint swelling or deformity. EXTREMITIES: No cyanosis, clubbing, or pedal edema. NEUROLOGICAL: Gross neurological examination did not reveal any focal deficits. SKIN: No rashes. Dictation was produced using [employer] dictation software. please excuse any grammatical, word or spelling errors. Patient Condition at Discharge: Fair Plan - Discharge Summary Discharge Rx Participant: No New Discharge Prescriptions: New Apixaban [Eliquis Starter Pack (for VTE)] 5 - 10 mg PO DIRECTED 30 Days #1 each Continue predniSONE 100 mg PO DIRECTED Famotidine 40 mg PO DAILY PRN PRN Reason: Heartburn ALPRAZolam [Xanax] 0.25 mg PO DAILY PRN PRN Reason: Anxiety Omeprazole 40 mg PO DAILY Ondansetron [Zofran] 4 - 8 mg PO Q6H PRN PRN Reason: Nausea Aprepitant [Emend] 80 mg PO DIRECTED Lidocaine-Prilocaine Cream [Emla Cream 2.5%/2.5%] 1 applic TOPICAL DIRECTED PRN PRN Reason: port access Discharge Medication List Aprepitant [Emend] 80 mg PO DIRECTED 08/29/23 [History] Ondansetron [Zofran] 4 - 8 mg PO Q6H PRN 08/29/23 [History] predniSONE 100 mg PO DIRECTED 08/29/23 [History] ALPRAZolam [Xanax] 0.25 mg PO DAILY PRN 09/12/23 [History] Famotidine 40 mg PO DAILY PRN 09/12/23 [History] Lidocaine-Prilocaine Cream [Emla Cream 2.5%/2.5%] 1 applic TOPICAL DIRECTED PRN 09/12/23 [History] Omeprazole 40 mg PO DAILY 09/12/23 [History] Apixaban [Eliquis Starter Pack (for VTE)] 5 - 10 mg PO DIRECTED 30 Days #1 each 09/14/23 [Rx] Follow up Appointment(s)/Referral(s): Bisi Calle FNPBC [REFERRING] - 1-2 days Irwin Mckeon MD [STAFF PHYSICIAN] - 1 Week Romario Tyler [STAFF PHYSICIAN] - 1 Week Discharge Disposition: HOME SELF-CARE
[2023-09-14 14:15] VITALS: BP 116/70; PULSE 96
--- NOTE | 2023-09-14 15:09 | P.PN ---
Subjective Progress Note Date: 09/14/23 This is a very pleasant 73-year-old female patient with a history of an enlarged right neck mass with subsequent biopsy and 07/23/2023 that revealed non- Hodgkin's large B-cell lymphoma. She had been initiated on R-CHOP chemotherapy 2 weeks ago. Over the past several days she had developed increasing shortness of breath and some right-sided chest pain. She was seen by her medical oncologist who ordered a CT angiogram yesterday that was positive for pulmonary embolism and she was referred here to the emergency room for the same. The angiogram did reveal right-sided pulmonary emboli with suspicion of some mild right heart strain. Some inflammatory airway changes in the lung bases bilaterally. Doppler of the lower extremities revealed no evidence of DVT. She has no prior history of PE/DVT. Echocardiogram is pending. White count 21.4. Hemoglobin 12.4. Platelets 277. D-dimer 4.71. Sodium 131. Potassium 4.2. Bicarb 20. BUN 9. Creatinine 0.43. Troponins were negative x 3. proBNP 154. She has been initiated on a heparin drip. She is seen today in consultation in the emergency department. She is currently sitting up on the stretcher. Awake and alert in no acute distress. She is maintaining O2 saturations in the 90s on 2 L/min per nasal cannula. She has been afebrile. Hemodynamically stable. The patient is seen today's September 14, 2023 in follow-up on the selective care unit. She is currently sitting up in a chair at the bedside. Awake and alert in no acute distress. Maintaining good O2 saturations in the 90s on room air. She is afebrile. Hemodynamically stable. Denies any worsening shortness of breath, cough or congestion. No chest pain. No hemoptysis. She is continued on a heparin drip. Count 21.9. Hemoglobin 11.9. Platelets 361. Sodium 132. Potassium 4.1. Bicarb 23. BUN 9. Creatinine 0.51. Glucose 104. Objective - Vital Signs Vital signs: Vital Signs Temp 98.4 F 09/14/23 08:30 Pulse 96 09/14/23 12:00 Resp 18 09/14/23 12:00 BP 116/70 09/14/23 12:00 Pulse Ox 93 L 09/14/23 12:00 FiO2 Intake & Output 09/13/23 09/14/23 09/14/23 18:59 06:59 18:59 Intake Total 360 862.026 275.428 Output Total 3 Balance 360 862.026 272.428 Weight 84.368 kg Intake: Intake, IV Titration 250 322.026 157.428 Amount Heparin Sod,Pork in 0.45% 250 247.026 157.428 NaCl 25,000 unit In 0.45 % NaCl 1 250ml.bag @ 18 UNITS/KG/HR 15.186 mls/hr IV .[id number] [facility] Rx#: [id number] Sodium Chloride 0.9% 1, 75 000 ml @ 75 mls/hr IV . [id number] [facility] Rx#:[id number] Oral 110 540 118 Output: Urine 3 Other: # Voids 2 - Exam GENERAL EXAM: Alert, very pleasant 73-year-old female, on room air, up in a chair, comfortable in no apparent distress. HEAD: Normocephalic. EYES: Normal reaction of pupils, equal size. NOSE: Clear with pink turbinates. THROAT: No erythema or exudates. NECK: No masses, no JVD. CHEST: No chest wall deformity. LUNGS: Equal air entry with no crackles, wheeze, rhonchi or dullness. CVS: S1 and S2 normal with no audible murmur, regular rhythm. ABDOMEN: No hepatosplenomegaly, normal bowel sounds, no guarding or rigidity. SPINE: No scoliosis or deformity SKIN: No rashes CENTRAL NERVOUS SYSTEM: No focal deficits, tone is normal in all 4 extremities. EXTREMITIES: There is no peripheral edema. No clubbing, no cyanosis. Peripheral pulses are intact. - Labs CBC & Chem 7: 09/14/23 07:29 09/14/23 07:29 Labs: Abnormal Lab Results - Last 24 Hours (Table) 09/14/23 09/14/23 09/14/23 Range/Units 07:29 07:29 07:29 WBC 21.9 H (3.8-10.6) k/uL Neutrophils # 18.8 H (1.3-7.7) k/uL Monocytes # 1.3 H (0-1.0) k/uL APTT 79.0 H (22.0-30.0) sec Sodium 132 L (137-145) mmol/L Creatinine 0.51 L (0.52-1.04) mg/dL Glucose 104 H (74-99) mg/dL Alkaline Phosphatase 129 H (38-126) U/L Total Protein 6.1 L (6.3-8.2) g/dL Albumin 3.0 L (3.5-5.0) g/dL Assessment and Plan Assessment: Acute hypoxic respiratory failure secondary to an acute pulmonary emboli involving the segmental and subsegmental branches of the right middle and right lower lobe pulmonary arteries Right-sided chest pain secondary to above Recent diagnosis of large B cell non-Hodgkin's lymphoma, initiated on R-CHOP 2 weeks ago Enlarged right supraclavicular lymph nodes secondary to above status post biopsy 07/23/2023 Plan: The patient was seen and evaluated Labs and medications reviewed Stable and on room air Echocardiogram reviewed No significant right heart strain No surgical intervention planned Discontinue heparin drip Initiated on Eliquis Recommend lifelong therapy Cleared for discharge from the pulmonary standpoint Follow-up closely with oncology I have personally seen and examined the patient, performed the documentation and the assessment and plan as written. Number of minutes spent on the visit: 10.
== END 2023-09-14 14:23 | disposition home or self-care (01) | DRG 175 ==
LOC: EC 14:26 → 2SICU 16:41 → 3SCARD 17:02
PROVIDERS: ADMIT Hospitalist; ATTEND Hospitalist
DX: I26.99 Other pulmonary embolism without acute cor pulmonale (principal); J96.01 Acute respiratory failure with hypoxia; C83.31 Diffuse large B-cell lymphoma, lymph nodes of head, face, and neck; E87.1 Hypo-osmolality and hyponatremia; I26.94 Multiple subsegmental thrombotic pulmonary emboli without acute cor pulmonale; E86.0 Dehydration; I10 Essential (primary) hypertension; I49.3 Ventricular premature depolarization; Z77.22 Contact with and (suspected) exposure to environmental tobacco smoke (acute) (chronic); Z92.21 Personal history of antineoplastic chemotherapy; Z88.0 Allergy status to penicillin; Z88.2 Allergy status to sulfonamides
CPT/HCPCS: 36415; 80053; 83880; 84484; 85025; 85379; 85610; 85730; 93005; 93306; 93970; 94640; 96365; 96366; 96375; 99285

== ENCOUNTER → 2023-09-12 | Outpatient (CLI) | payer MEDICARE ==
[2023-09-12 13:26] LABS: African American GFR (CKD) >90 (>60 ml/min/1.73 sqM); Blood Urea Nitrogen 10 mg/dL (7-17); Non-African American GFR(CKD) >90 (>60 ml/min/1.73 sqM)
--- NOTE | 2023-09-12 14:21 | CT ---
Exam: CT Angiography of the Chest. Date: 09/12/2023. Comparison: None History: Difficulty breathing and cough. Technique: CT examination of the chest was performed following the intravenous administration of 1 ye ars of Isovue-370. CT dose lowering techniques were used, to include: automated exposure control, adj ustment for patient size, and/or use of iterative reconstruction. FINDINGS: CHEST WALL: Left-sided Mediport is present. Mediastinum and Ivanna: Enlarged right supraclavicular lymph node measuring 2.9 x 2.6 cm in diameter ad ditional enlarged right supraclavicular lymph nodes are also seen. This measured lymph node extends i nto the lower cervical region. There is no definitive additional mediastinal or hilar adenopathy seen . Pleural and Pericardial spaces: Trace right pleural effusion. Upper Abdomen: The visualized upper abdomen is unremarkable. Cardiovascular: The thoracic aorta is normal in size without evidence of aneurysm or dissection. Pulmonary Artery: There are filling defects seen within the segmental and subsegmental branches of th e right middle and right lower lobe pulmonary arteries. There is some prominence of the right heart w hich is suggestive of some right heart strain, however there is also some mild global cardiomegaly is well. Lung Parenchyma and Airways: There is some scattered septal thickening, bronchial wall thickening and interstitial changes in the lower lungs bilaterally which could be inflammatory or infectious versus chronic changes or atelectasis. Bones: No fracture or aggressive osseous lesion. IMPRESSION: 1. Right-sided pulmonary emboli as above with suspicion of some mild right heart strain. 2. Inflammatory airway changes and/or chronic changes in the lung bases bilaterally. 3. No evidence of thoracic aortic aneurysm or dissection. These critical findings were discussed with Dr. Tyler at 12:14 PM Mt. standard time on 09/12/2023.
== END | disposition home or self-care (01) ==
LOC: RADCTMAIN 12:49
PROVIDERS: ATTEND Internal Medicine Hematology & Oncology
DX: I26.99 Other pulmonary embolism without acute cor pulmonale (principal)
CPT/HCPCS: 82565; 84520; 71275; Q9967